=== PATIENT | female | born 1935 | race Asian ===

== ENCOUNTER → 2018-08-24 | Outpatient (CLI) | payer MEDICARE, OTHER ==
[~2018-08-24] MED LIST: EVISTA 60MG60 MG/TAB PO; GLIPIZIDE5 MG PO; JANUVIA100 MG PO; METFORMIN500 MG PO; SIMVASTATIN80 MG PO; ULTRAM 50MG TAB50 MG PO
== END ==
LOC: COL.RAD 09:39
DX: R79.89 Other specified abnormal findings of blood chemistry (principal)

== ENCOUNTER → 2019-03-05 | Outpatient (CLI) | payer MEDICARE, OTHER | LOC: COL.VAS 08:00 | DX: I65.23 Occlusion and stenosis of bilateral carotid arteries (principal); I73.9 Peripheral vascular disease, unspecified; I70.1 Atherosclerosis of renal artery; I10 Essential (primary) hypertension ==

== ENCOUNTER 2019-05-24 13:00 | Day surgery (SDC) | payer MEDICARE, OTHER ==
[~2019-05-24] VITALS: Ht 152.4 cm; Wt 51.3 kg
[2019-05-24 13:43] VITALS: BP 134/84; PULSE 64; TEMP 97.7
[2019-05-24] MEDS ORDERED: LIPITOR 40MG TA40 MG PO (13:55)
[2019-05-24] MEDS ORDERED: EVISTA 60MG60 MG/TAB PO (13:56)
[2019-05-24] MEDS ORDERED: TOPROL XL100 MG PO (13:56)
[2019-05-24] MEDS ORDERED: JANUVIA 100MG100 MG PO (13:57)
[2019-05-24] MEDS ORDERED: NORVASC2.5 MG PO (13:57)
[2019-05-24] MEDS ORDERED: ASPIRIN 32325 MG/TAB PO (13:58)
--- NOTE | 2019-05-24 13:58 | NUR ---
TAKEN TO ENDOSCOPY SON IN
[2019-05-24 14:45] VITALS: BP 152/73; PULSE 59; TEMP 97.3
--- NOTE | 2019-05-24 14:45 | NUR ---
TO [facility] PER CART FROM ENDOSCOPY. AMBULATED WITH ASSIST TO RECLINER. ONCE IN RECLINER ELVATED FOOT REST. PATIENT RESTING QUIETLY
[2019-05-24 15:00] VITALS: BP 149/69; PULSE 57
--- NOTE | 2019-05-24 15:00 | NUR ---
PATIENT MORE AWAKE AND TALKING TO SON. RECEIVED DIET COKE.
[2019-05-24 15:15] VITALS: BP 162/74; PULSE 53
--- NOTE | 2019-05-24 15:15 | NUR ---
PATIENT DOZING OFF AT TIMES.
--- NOTE | 2019-05-24 15:31 | NUR ---
DR AGUIAR INTO TALK WITH PATIENT AND SON.
--- NOTE | 2019-05-24 15:40 | NUR ---
PATIENT AND SON RECEIVED DISCHARGE INSTRUCTIONS AND VERBALIZED UNDERSTANDING
--- NOTE | 2019-05-24 16:04 | NUR ---
DISCHARGED PER WC BY NURSING STAFF TO PRIVATE CAR IN CARE OF SON.
== END 2019-05-24 16:06 | disposition home or self-care (01) ==
LOC: SDCO 13:00
DX: Z12.11 Encounter for screening for malignant neoplasm of colon (principal); D12.8 Benign neoplasm of rectum; D12.3 Benign neoplasm of transverse colon; D12.2 Benign neoplasm of ascending colon; K63.89 Other specified diseases of intestine; I10 Essential (primary) hypertension; E78.00 Pure hypercholesterolemia, unspecified; Z88.0 Allergy status to penicillin; Z85.038 Personal history of other malignant neoplasm of large intestine; Z86.010 Personal history of colon polyps
CPT/HCPCS: OP; J2250; J3010; J7120

== ENCOUNTER → 2019-07-01 | Outpatient (CLI) | payer MEDICARE, OTHER ==
[~2019-07-01] MED LIST changes: +ASPIRIN 32325 MG/TAB PO; +JANUVIA 100MG100 MG PO; +LIPITOR 40MG TA40 MG PO; +NORVASC2.5 MG PO; +TOPROL XL100 MG PO
== END ==
LOC: COL.VAS 08:16
DX: N18.4 Chronic kidney disease, stage 4 (severe) (principal)
CPT/HCPCS: G0365

== ENCOUNTER → 2021-11-19 | Outpatient (CLI) | payer MEDICARE, OTHER | LOC: ZCOL.LAB 16:38 | DX: R06.02 Shortness of breath (principal); Z20.822 Contact with and (suspected) exposure to COVID-19 ==